=== PATIENT | male | born 2000 | race Two or more races ===

== ENCOUNTER 2023-06-20 17:34 | Inpatient (IN) | payer OTHER ==
[~2023-06-20] VITALS: Ht 177.8 cm; Wt 66.2 kg
[2023-06-20 21:13] LABS: PH,URINE 7.5 (5.0-8.0); URINE APPEARANCE Turbid; URINE BILIRRUBIN Negative (NEGATIVE); URINE BLOOD Negative; URINE COLOR Yellow; URINE GLUCOSE Negative (NEGATIVE); URINE LEUKOCYTE Negative; URINE NITRATE Negative; URINE PROTEIN Negative (NEGATIVE)
[2023-06-20 21:14] LABS: URINE RBC 7.7 uL (0.0-20.8); URINE WBC 1.9 uL (0.0-23.2)
[2023-06-20 21:17] LABS: URINE BACTERIA 2.5 uL (0.0-1933); URINE EPITHELIAL CELLS 0.3 uL (0.0-38.8)
[2023-06-20 21:22] LABS: HEMATOCRIT 45.8 % (39.0-48.0); HEMOGLOBIN 16.1 g/dL (13-16.00); MEAN CELL VOLUME 87.6 fL (80.0-100.00); MEAN CORPUSCULAR HEMOGLOBIN 30.7 pg (27.00-32.0); RED BLOOD COUNT 5.23 M/uL (4.00-6.00); RED CELL DISTRIBUTION WIDTH 12.6 % (11.5-14.5)
[2023-06-20 21:43] LABS: ALBUMIN 3.9 gm/dL (3.4-5.0); BILIRUBIN TOTAL 0.38 mg/dL (0.3-1.2); BILIRUBIN,CONJUGATED 0.12 mg/dL (0.0-0.2); BILIRUBIN,UNCONJUGATED 0.26 mg/dL (0.0-0.6); CALCIUM 9.2 mg/dL (8.5-10.1); CREATININE SERUM 0.76 mg/dL (0.70-1.30); GFR 127.1; GLOBULINA 3.3 G/DL (2.4-3.5); POTASSIUM 4.02 mEq/L (3.5-5.1); TOTAL PROTEIN 7.2 gm/dL (6.4-8.2)
[2023-06-20 21:45] LABS: INR 1.05
[2023-06-20 21:47] LABS: PARTIAL THROMBOPLASTIN TIME 38.5 SECONDS (22.0-34.0)
[2023-06-20 21:54] LABS: PLATELET COUNT 54 K/uL (150-450)
[2023-06-21 02:09] LABS: LDH 387 U/L (87-241); PHOSPHOKINASE CREATININE 170 U/L (39-308)
[2023-06-21 08:28] LABS: HEMATOCRIT 41.2 % (39.0-48.0); HEMOGLOBIN 14.3 g/dL (13-16.00); MEAN CELL VOLUME 86.8 fL (80.0-100.00); MEAN CORPUSCULAR HEMOGLOBIN 30.1 pg (27.00-32.0); MEAN CORPUSCULAR HGB CONC 34.7 g/dl (32.0-36.0); RED BLOOD COUNT 4.74 M/uL (4.00-6.00); RED CELL DISTRIBUTION WIDTH 12.5 % (11.5-14.5)
[2023-06-21 08:39] LABS: INR 1.06; PROTHROMBIN TIME 11.1 SECONDS (9.0-11.5)
[2023-06-21 08:50] LABS: ALBUMIN 3.2 gm/dL (3.4-5.0); ALKALINE PHOSPHATASE 40 U/L (50-136); ALT/SGPT 61 U/L (12-78); ANION GAP 9 (10.0-20.0); AST/SGOT 68 U/L (15-37); BILIRUBIN TOTAL 0.43 mg/dL (0.3-1.2); BILIRUBIN,UNCONJUGATED 0.33 mg/dL (0.0-0.6); BLOOD UREA NITROGEN 10 mg/dL (7-18); BUN CREA RATIO 16 (7.0-25.0); CALCIUM 8.1 mg/dL (8.5-10.1); CARBON DIOXIDE 27 mEq/L (21-32); CHLORIDE 109 mmol/L (98-107); CHOL HDL RATIO 3.4 (0-5.0); CHOLESTEROL 75 mg/dL (0-200); CREATININE SERUM 0.63 mg/dL (0.70-1.30); GFR 157.82; GLOBULINA 2.7 G/DL (2.4-3.5); GLUCOSE FASTING 81 mg/dL (65-100); HDL 22 mg/dl (40-60); LDL 30 mg/dl (0-130); OSMOLALITY SERUM 279 MOSM/KG (275-295); POTASSIUM 4.03 mEq/L (3.5-5.1); SODIUM 141 mmol/L (136-145); TOTAL PROTEIN 5.9 gm/dL (6.4-8.2); TRIGLYCERIDES 116 mg/dL (0-150); VLDL 23 (0-39)
[2023-06-21 08:52] LABS: C-REACTIVE PROTEIN < 0.29 MG/DL (0.00-0.29); LDH 376 U/L (87-241); PHOSPHOKINASE CREATININE 142 U/L (39-308)
[2023-06-21 09:37] LABS: PLATELET COUNT 56 K/uL (150-450)
[2023-06-21 09:54] LABS: ERYTHROCYTE SEDIMENTATION RATE 2 mm/hr
[2023-06-21 11:18] LABS: PH,URINE 7.5 (5.0-8.0); URINE APPEARANCE Clear; URINE BILIRRUBIN Negative (NEGATIVE); URINE BLOOD Negative; URINE COLOR Yellow; URINE GLUCOSE Negative (NEGATIVE); URINE LEUKOCYTE Negative; URINE NITRATE Negative; URINE PROTEIN Negative (NEGATIVE); URINE UROBILINOGEN 0.2 E.U./dl
[2023-06-21 11:21] LABS: URINE WBC 2.7 uL (0.0-23.2)
[2023-06-21 11:25] LABS: URINE EPITHELIAL CELLS 0.6 uL (0.0-38.8); URINE RBC 1.2 uL (0.0-20.8)
[2023-06-21 16:05] LABS: LDH 333 U/L (87-241); PHOSPHOKINASE CREATININE 91 U/L (39-308)
[2023-06-22 08:00] LABS: HEMATOCRIT 42.9 % (39.0-48.0); HEMOGLOBIN 14.7 g/dL (13-16.00); MEAN CELL VOLUME 88.1 fL (80.0-100.00); MEAN CORPUSCULAR HEMOGLOBIN 30.1 pg (27.00-32.0); MEAN CORPUSCULAR HGB CONC 34.2 g/dl (32.0-36.0); RED BLOOD COUNT 4.87 M/uL (4.00-6.00); RED CELL DISTRIBUTION WIDTH 12.3 % (11.5-14.5)
[2023-06-22 08:47] LABS: PLATELET COUNT 95 K/uL (150-450)
[2023-06-22 14:42] LABS: ob NEGATIVE (NEGATIVE)
== END 2023-06-22 20:30 | disposition home or self-care (01) | DRG 866 ==
LOC: ER 17:34 → MEDJ 23:28
PROVIDERS: Emergency Medicine; General Practice; Internal Medicine Hematology & Oncology; ADMIT Specialist; ATTEND Specialist
PROC: BW21YZZ Computerized Tomography (CT Scan) of Abdomen and Pelvis using Other Contrast (ICD-10-PCS; principal; 2023-06-20)
DX: A90 Dengue fever [classical dengue] (principal); E86.0 Dehydration; D69.6 Thrombocytopenia, unspecified